=== PATIENT | female | born 1950 | race African-American/Black ===

== ENCOUNTER 2020-04-26 08:30 | Outpatient (CLI) | payer MEDICARE, SELFPAY ==
--- NOTE | ~2020-04-26 | MM_ITS ---
EXAMINATION: MM screening eleni BI w danica HISTORY: Screening mammogram TECHNIQUE: Craniocaudal and mediolateral oblique 3-D tomosynthesis images were obtained and synthetic 2-D images were generated. CAD analysis was submitted and interpreted. COMPARISON: 03/12/2019 left diagnostic mammogram and limited left breast ultrasound 02/19/2019 bilateral digital screening mammogram BREAST PARENCHYMAL COMPOSITION: There are scattered areas of fibroglandular density. FINDINGS: Stable bilateral small intramammary lymph nodes in the upper outer quadrants. There is no e vidence of suspicious mass, calcification, or architectural distortion to suggest malignancy in eithe r breast. There has been no suspicious interval change. IMPRESSION: 1. No mammographic evidence of malignancy. 2. Recommend routine screening mammography in one year. BI-RADS Category 2: Benign finding(s). Reviewed, dictated and finalized at location A.
== END 2020-04-26 08:31 | disposition home or self-care (01) ==
PROVIDERS: PCP Family Medicine; Visit Provider Obstetrics & Gynecology
DX: Z12.31 Encounter for screening mammogram for malignant neoplasm of breast (principal)
CPT/HCPCS: 77063; 77067

== ENCOUNTER 2020-08-04 08:00 | Outpatient (RCR) | payer MEDICARE, SELFPAY ==
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
--- NOTE | 2020-08-24 10:37 | PCPTNOTE ---
Admitting Provider: Attending Provider: Kenneth Watson MD Patient:Lorna Cavanaugh Date of :1950 Discharge Note Patient has not returned for any further treatments since 08/04/2020, therefore she will be discharged at this time. She has improved with her pain and tolerance with daily activities. She has been instructed in a HEP and performs independently. Patient?s initial visit was on 07/05/2020 08:45 and she had a total of 6 visits. The goals have been met at this time. Thank you for referring this patient to [facility]. Please review, sign, date and return this discharge summary BENTLEY. I have been updated about the patient's current status and I agree with discharge from the above service at this time. Referring Physician Date
== END 2020-08-24 13:11 | disposition home or self-care (01) ==
LOC: ANHPT 08:00
PROVIDERS: PCP Family Medicine; Visit Provider Orthopaedic Surgery
DX: M47.9 Spondylosis, unspecified (principal)
CPT/HCPCS: 97110; 97161

== ENCOUNTER 2021-01-21 09:04 | Outpatient (CLI) | payer MEDICARE, SELFPAY ==
[2021-01-21 10:12] LABS: Alanine Aminotransferase 19 U/L (4-35); Albumin Level 4.3 g/dL (3.5-5.1); Alkaline Phosphatase 59 U/L (38-126); Anion Gap 7 mmol/L (8-16); Aspartate Amino Transferase 29 U/L (14-36); Bilirubin,Total 0.6 mg/dL (0.2-1.3); Blood Urea Nitrogen 15 mg/dL (7-17); Calcium 9.7 mg/dL (8.4-10.2); Carbon Dioxide 29 mmol/L (22-30); Chloride 105 mmol/L (98-107); Cholesterol 214 mg/dL (0-200); Estimated Glomerular Filt Rate > 60; Glucose 116 mg/dL (65-105); HDL Direct 55 mg/dL; Potassium 3.6 mmol/L (3.4-5.0); Sodium 141 mmol/L (137-145); Triglycerides 125 mg/dL (<150)
[2021-01-21 10:22] LABS: LDL Cholesterol Direct 106 mg/dL
== END 2021-01-21 09:05 | disposition home or self-care (01) ==
PROVIDERS: PCP Family Medicine; Visit Provider Internal Medicine Cardiovascular Disease
DX: E78.5 Hyperlipidemia, unspecified (principal)
CPT/HCPCS: 36415; 80053; 80061

== ENCOUNTER 2021-02-09 06:36 | Outpatient (CLI) | payer MEDICARE, SELFPAY ==
--- NOTE | ~2021-02-09 | NM_ITS ---
EXAMINATION: NM tati stress w perfusion DATE: 02/09/2021 12:53 INDICATION: Chest pain TECHNIQUE: Rest images were obtained following intravenous administration of 9.7 mCi Tc99m tetrofosmi n (Myoview). The patient was infused intravenously with Lexiscan (Regadenoson). Then, 31.4 mCi Tc99m tetrofosmin (Myoview) was administered intravenously, and stress images were obtained. Data was recon structed into short axis and horizontal and vertical long axis SPECT images. Gated SPECT images were also obtained. COMPARISON: None. FINDINGS: There is no definite reversible or fixed perfusion abnormality to suggest ischemia or infar ction. There is normal left ventricular chamber size, wall motion and ejection fraction. Left ventr icular ejection fraction measures 66%. IMPRESSION: 1. Normal myocardial perfusion at rest and during stress. 2. Left ventricular ejection fraction measuring 66%. Reviewed, dictated and finalized at location B.
--- NOTE | 2021-02-09 07:00 | ECHO_ITS ---
Patient Info Name: Lorna Cavanaugh Age: 70 years : 1950 Gender: Female Ht: 64 in Wt: 170 lbs BSA: 1.89 m2 HR: 72 bpm BP: 176 / 95 mmHg Heart Rhythm: Sinus Rhythm Exam Date: 02/09/2021 7:11 AM Exam Location: [facility] Patient Status: Outpatient Admit Date: 02/09/2021 Staff Ordering Physician: Sohail East DO Crimping Machine Operator For Metal: Eliza Contreras RDCS Attending Provider: Sohail East DO Exam Type: CA echo doppler color flow Study Info Indications R06.00 - Dyspnea, unspecified Complete two-dimensional, color flow and Doppler transthoracic echocardiogram is performed. Summary 1. Complete two-dimensional, color flow and Doppler transthoracic echocardiogram is performed. 2. Left ventricular chamber dimension is normal. 3. Left ventricular systolic function is normal, estimated at 60-65%. 4. The left ventricular diastolic function is grade I diastolic dysfunction. 5. E/e' 11 is mildly elevated. 6. There is mild aortic valve sclerosis. 7. There is trace mitral valve regurgitation. 8. There is mild to moderate tricuspid valve regurgitation. 9. No pulmonary hypertension, estimated pulmonary arterial systolic pressure is 38 mmHg. 10. There is trace pulmonic regurgitation. Left Ventricle E/e' 11 is mildly elevated. Left ventricular chamber dimension is normal. Left ventricular systolic function is normal, estimated at 60-65%. The left ventricular diastolic function is grade I diastolic dysfunction. Right Ventricle Right ventricular chamber dimension is normal. Right ventricular systolic function is normal. Left Atria Left atrial chamber dimension is normal. Right Atria Right atrial chamber dimension is normal. Aortic Valve The aortic valve is trileaflet. There is mild aortic valve sclerosis. There is no aortic valve stenosis. There is no aortic valve regurgitation. Pulmonic Valve There is trace pulmonic regurgitation. Mitral Valve There is no mitral valve stenosis. There is trace mitral valve regurgitation. Tricuspid Valve There is mild to moderate tricuspid valve regurgitation. No pulmonary hypertension, estimated pulmonary arterial systolic pressure is 38 mmHg. Pericardium/Pleural There is no pericardial effusion. Inferior Vena Cava Normal inferior vena cava with >50% collapse upon inspiration consistent with normal right atrial pressure, 5 mmHg. Aorta The aortic root size at the sinus of Valsalva is normal. Left Ventricular Outflow Tract Name Value Normal LVOT 2D LVOT Diameter 1.7 cm LVOT Doppler LVOT Peak Gradient 3 mmHg LVOT Mean Gradient 2 mmHg LVOT VTI 24 cm LVOT VTI/AV VTI Ratio 0.7 LVOT Stroke Volume 51 ml LVOT CO 7.3 l/min LVOT CI 3.9 l/min/m2 Pulmonic Valve Name Value Normal
--- NOTE | 2021-02-09 07:00 | EST_ITS ---
Patient Info Name: Lorna Cavanaugh Age: 70 years : 1950 Gender: Female Ht: 64 in Wt: 170 lbs BSA: 1.89 m2 Exam Date: 02/09/2021 9:10 AM Exam Location: [facility] Stress Patient Status: Outpatient Admit Date: 02/09/2021 Staff Ordering Physician: Sohail East DO Attending Provider: Sohail East DO Exercise Technologist: Bartolome Islas RDCS, RT Exercise Physician: Sohail East DO Exam Type: CA stress tati w NM Study Info A regadenoson stress test was performed. Summary 1. 1. Inconclusive lexiscan stress test for ischemic ST changes by ECG criteria due to baseline LBBB. 2. 2. Baseline hypertension. 3. 3. Nuclear scan to follow and will be reported separately. Please correlate with it. 4. 4. Patient informed of the above results. Protocol: Lexiscan Stress ECG Details Stage: REST Duration (min): 2 min : 43 sec HR (bpm): 63 SBP (mmHg): --- DBP (mmHg): --- Stage: REST Duration (min): 7 min : 55 sec HR (bpm): 61 SBP (mmHg): 188 DBP (mmHg): 99 Stage: STAGE 1 Duration (min): 1 min : 0 sec HR (bpm): 87 SBP (mmHg): 178 DBP (mmHg): 74 Stage: RECOVERY Duration (min): 1 min : 0 sec HR (bpm): 93 SBP (mmHg): 178 DBP (mmHg): 74 Stage: RECOVERY Duration (min): 2 min : 0 sec HR (bpm): 85 SBP (mmHg): 178 DBP (mmHg): 74 Stage: RECOVERY Duration (min): 3 min : 0 sec HR (bpm): 83 SBP (mmHg): 178 DBP (mmHg): 74 Stage: RECOVERY Duration (min): 3 min : 16 sec HR (bpm): 82 SBP (mmHg): 169 DBP (mmHg): 80 Rest HR: 61 bpm Peak HR: 94 bpm Rest Sys BP: 188 mmHg Peak Sys BP: 178 mmHg Max Pred HR: 152 bpm % Max Pred HR: 62 % Target HR: 129 bpm Max RPP: 16,732 bpm*mmHg Termination Reason: Completed protocol Cardiac Symptoms: Shortness of breath Total Time: 1 min : 0 sec Rest Weinberg BP: 99 mmHg Peak Weinberg BP: 74 mmHg Total Dose: 0.4 mg Resting ECG Sinus rhythm, LBBB. Stress ECG No ST changes. Arrhythmias None. Report Signatures
== END 2021-02-09 06:37 | disposition home or self-care (01) ==
PROVIDERS: PCP Family Medicine; Visit Provider Internal Medicine Cardiovascular Disease
DX: R07.89 Other chest pain (principal); R06.00 Dyspnea, unspecified; I36.1 Nonrheumatic tricuspid (valve) insufficiency; I35.8 Other nonrheumatic aortic valve disorders
CPT/HCPCS: 78452; 93017; 93306; A9502; J2785

== ENCOUNTER → 2021-02-23 00:27 | Outpatient (CLI) | payer MEDICARE, SELFPAY ==
[2021-02-23 16:23] LABS: SARS-CoV-2 RNA PCR Negative
== END ==
PROVIDERS: PCP Family Medicine; Visit Provider Internal Medicine Critical Care Medicine
DX: Z20.822 Contact with and (suspected) exposure to COVID-19 (principal)
CPT/HCPCS: C9803; U0003; U0005

== ENCOUNTER 2021-02-25 06:58 | Outpatient (CLI) | payer MEDICARE, SELFPAY ==
--- NOTE | 2021-03-14 13:18 | WPDSLEEPSTUD ---
Sleep Study Date of Study: 02/25/21 Ordering Provider: Sohail East DO Interpreting Physician: Ann Frye MD Sleep Study Type: Polysomnogram Height: 1.63 m Weight: 77.111 kg Body Mass Index: 29.2 Neck Circumference (inches): 16 [place]: 7 Reason for Sleep Study Snoring, daytime sleepiness Sleep History Lorna Cavanaugh is a 70 year old female with a history of snoring and excessive daytime sleepiness, referred by Dr East. His office note refers to these complaints as well as her hypertension, left bundle branch block and dyslipidemia. She has had some atypical chest pain and dyspnea on exertion. Her EKG shows 1st degree AV block, left axis deviation and a left bundle branch block. For complaint of hypersomnia. She also has this left bundle branch block which he was concerned that may be related to possible sleep apnea. She did not complete a sleep questionnaire, so there is limited history about her sleep habits. [facility] Past Medical History Medical History Arthritis Arthritis, lumbar spine Bilateral hip joint arthritis BMI 31.0-31.9,adult Bronchitis Cataracts, bilateral Degenerative arthritis of knee, bilateral Essential (primary) hypertension Fracture of finger of right hand (~10/2019) 5th distal finger GI bleed Hyperlipidemia Hypertension LBBB (left bundle branch block) Low back pain Obesity Rectal polyp Urinary frequency Vision disturbance (~11/28/19) Surgical History Surgical History H/O tubal ligation Hx of cataract surgery bilateral Hx of section Trigger finger, right middle finger Right third trigger finger release March 14, 2021 Family History Family History Mother Hypertension Social History Social History Smoking status: Never smoker Second hand tobacco smoke exposure: No Alcohol intake: never Living arrangements: alone Gender identity (if verbalized by the patient): Female Spiritual care concerns: No Medications Home Medications Medication Instructions Recorded Confirmed Type multivitamin 1 cap PO DAILY 06/23/20 03/14/21 History fluticasone propionate 50 1 spray INTRANASAL PRN PRN 01/06/21 03/10/21 History mcg/actuation nasal spray,suspension solifenacin 10 mg tablet 10 mg PO DAILY 03/09/21 03/14/21 History atorvastatin 10 mg PO HS 03/10/21 03/14/21 History hydrochlorothiazide 12.5 mg PO BID 03/10/21 03/14/21 History lisinopril 40 mg PO BID 03/10/21 03/14/21 History hydrocodone-acetaminophen 1 tablet PO Q6H PRN #10 tablet 03/14/21 Rx Sleep Procedure This test was performed using the [employer] multiple channel system including EOG, EEG, submental EMG, EKG, nasal and oral airflow using thermistors and nasal pressure sensors, chest and abdominal belts for body position data, and pulse oximetry. Video monitoring was also performed. The study was scored using [facility] guidelines. Sleep Architecture The recording time was 526.6 minutes. The sleep time is 258.7 minutes. Sleep efficiency is low at 49.1%. Sleep latency is 33.9 minutes. REM latency is 382.5 minutes. There were 51 awakenings. He spent 47.5% of the study awake after sleep onset. Sleep architecture showed 7.6% stage 1 sleep, 35.4% stage 2 sleep, absence of stage 3 sleep and 9.5% stage REM. There was no supine sleep. Sleep was fragmented with frequent shifts between wake stage I and stage II until the last 20% of the night. There was one consolidated REM episode near the end of the night. This was planned as a split night, however she did not meet criteria early enough in the night, the study was completed as a basic study per protocol. Respiratory Analysis The apnea-hypopnea index is 36.6. The obstructive index is 30.2 and the central index is 6.3. There was no supine RE
[2021-03-14 13:57] VITALS: BMI 29.2
== END 2021-02-25 06:59 | disposition home or self-care (01) ==
LOC: ANHCSM 06:58
PROVIDERS: PCP Family Medicine; Visit Provider Internal Medicine Cardiovascular Disease
DX: G47.33 Obstructive sleep apnea (adult) (pediatric) (principal); G47.10 Hypersomnia, unspecified; I10 Essential (primary) hypertension; E66.9 Obesity, unspecified; Z68.29 Body mass index [BMI] 29.0-29.9, adult; Z79.899 Other long term (current) drug therapy
CPT/HCPCS: 95810

== ENCOUNTER → 2021-03-11 01:51 | Outpatient (CLI) | payer MEDICARE, SELFPAY ==
[2021-03-11 19:39] LABS: SARS-CoV-2 RNA PCR Negative
== END ==
PROVIDERS: PCP Family Medicine; Visit Provider Orthopaedic Surgery
DX: Z01.812 Encounter for preprocedural laboratory examination (principal); Z20.822 Contact with and (suspected) exposure to COVID-19
CPT/HCPCS: C9803; U0003; U0005

== ENCOUNTER 2021-03-14 01:35 | Day surgery (SDC) | payer MEDICARE, SELFPAY ==
[2021-03-10 09:18] VITALS: BMI 32.1
--- NOTE | 2021-03-14 08:44 | WPDANESEPPF ---
Anes - Initial Pre Proc Eval Procedure: Operation Date: 03/14/21 12:00 Proposed Procedures p Right Third Trigger Finger Release - Kenneth Watson MD Date/Time: 03/14/21 08:44 Surgeon: Kenneth Watson MD Pre Op Diagnosis: Right 3rd trigger finger Patient Data Age: 70 Gender: F Height: 1.57 m Weight: 79.85 kg Allergies Allergy/AdvReac Type Severity Reaction Status Date / Time No Known Allergies Allergy Mild Verified 03/10/21 08:51 Home Medications Medication Instructions Recorded Confirmed Type multivitamin 1 cap PO DAILY 06/23/20 03/10/21 History fluticasone propionate 50 1 spray INTRANASAL PRN PRN 01/06/21 03/10/21 History mcg/actuation nasal spray,suspension solifenacin 10 mg tablet 10 mg PO DAILY 03/09/21 03/10/21 History atorvastatin 10 mg PO HS 03/10/21 03/10/21 History hydrochlorothiazide 12.5 mg PO BID 03/10/21 03/10/21 History lisinopril 40 mg PO BID 03/10/21 03/10/21 History ECG: Sinus rhythm, LAD, LBBB Other Studies: Echo/MUGA:: 02/09/21 Echo: EF 60-65%, grade I diastolic dysfunction (E/e' 11), trace MR/PI, mild-mod TR. Electrophysiology:: 01/21/21 EKG: Sinus rhythm, LAD, LBBB. 11/29/19 EKG: Sinus rhythm with first degree AV block, LAD, LBBB. Stress Tests:: 02/09/21 Lexiscan myoview: Negative. 12/01/19 CTA of head and neck: No ICA stenosis. Moderate nonspecific cerebral white matter disease, which likely represents chronic small vessel ischemic disease. Patient hx anesthesia problems: none Family hx anesthesia problems: none [facility] Past Medical History Medical History (Updated 03/14/21 @ 08:45 by Lance Farah MD) Arthritis Arthritis, lumbar spine Bilateral hip joint arthritis BMI 31.0-31.9,adult Bronchitis Cataracts, bilateral Degenerative arthritis of knee, bilateral Essential (primary) hypertension Fracture of finger of right hand (~10/2019) 5th distal finger GI bleed Hyperlipidemia Hypertension LBBB (left bundle branch block) Low back pain Obesity Rectal polyp Trigger finger, right middle finger Urinary frequency Vision disturbance (~11/28/19) Surgical History Surgical History H/O tubal ligation Hx of cataract surgery bilateral Hx of section Family History Family History Mother Hypertension Social History Social History Smoking status: Never smoker Second hand tobacco smoke exposure: No Alcohol intake: never Living arrangements: alone Gender identity (if verbalized by the patient): Female Spiritual care concerns: No Anes - Eval Final PreProcedure Day of Procedure 03/14/21 08:44 Patient weight: obese Heart: regular rate and rhythm Lungs: clear to auscultation and normal air movement Airway: Mallampati scale class II Neurological: alert and oriented Last oral intake: >/= 8 hours ASA classification: III Emergent: no Anesthetic plan: proceed Anesthesia type and monitoring: general GIVS Informed Consent: The patient's anesthetic plan and its attendant risks and benefits were discussed with the patient/family/POA. Questions were solicited and answers provided to the satisfaction of the patient/family/POA.
[2021-03-14] MEDS: LACTATED RINGERS 1,000 ML 30 ML IV CONT (10:50)
[2021-03-14 10:55] VITALS: BP 145/72; PULSE 61; TEMP 36.1; O2SAT 100
[2021-03-14] MEDS: ACETAMINOPHEN 500 MG TABLET 1000 MG PO (11:09)
[2021-03-14] MEDS: KETOROLAC 15 MG/ML VIAL (*BKC) IV PUSH (11:09)
--- NOTE | 2021-03-14 11:31 | WPDHPUPDATE1 ---
History and Physical Update Update Date/Time: 03/14/21 11:31 History and Physical has been reviewed, including an updated exam of the patient. There are NO changes in the patient's condition. Risks, benefits, and alternatives have been discussed and questions answered. Patient agrees to proceed with procedure.
[2021-03-14] MEDS: ceFAZolin 2 GM/D5W 50 ML 2 GM/50 ML BAG IVPB (11:56)
[2021-03-14 12:28] VITALS: BP 123/65; PULSE 61; RESP 14; O2SAT 100
--- NOTE | 2021-03-14 12:37 | PM.PROC ---
Procedure Note - Detailed Date of procedure: 03/14/21 Pre-op diagnosis: Right 3rd trigger finger Post-op diagnosis: same Procedure performed: Right third trigger finger release Description of procedure: The patient was identified and proper site identified. She was taken to the operating room and transferred to the OR table placing supine taking care to pad the torso and extremities. IV sedation was administered. A nonsterile tourniquet was placed high on the right arm which was prepped and draped in the usual sterile fashion. Several cc of .25 % plain Marcaine was injected into the subcutaneous tissue over the A1 yovanny of the right third digit. The extremity was exsanguinated and the tourniquet was inflated to 200 mmHg remaining up for about five minutes. A longitudinal incision was made over the A1 yovanny. Subcutaneous tissue was bluntly dissected down to the yovanny while protecting the neurovascular bundles. The A1 yovanny was identified and then transected longitudinally in line with the incision and tendons. The tendons were delivered into the wound verifying the adequacy of the release. Hemostasis was carried out. The wound was irrigated with sterile saline. Skin edges were reapproximated with 4-0 nylon suture. Sterile dressing was applied. Tourniquet was released. She tolerated the procedure well and was transferred back to a cart, then taken to the recovery area in stable condition. There were no known intraoperative complications. Estimated blood loss was negligible. Perioperative antibiotics were administered. Anesthesia: MAC and local Surgeon: Kenneth Watson MD Estimated blood loss (mL): 1 Tourniquet time (min): 5 Drains: No Packing: No Pathology: none sent Complications: No immediate complications Condition: stable Disposition: PACU
[2021-03-14 12:55] VITALS: BP 115/100; PULSE 52; RESP 14
[2021-03-14 13:15] VITALS: BP 160/68; PULSE 51; RESP 14
[2021-03-14 13:28] VITALS: BP 158/68; PULSE 54; RESP 14
== END 2021-03-14 13:33 | disposition home or self-care (01) ==
PROVIDERS: PCP Family Medicine; Visit Provider Orthopaedic Surgery
PROC: (CPT 26055; principal; 2021-03-14 12:00)
DX: M65.331 Trigger finger, right middle finger (principal); I10 Essential (primary) hypertension; E78.5 Hyperlipidemia, unspecified; E66.9 Obesity, unspecified; Z68.32 Body mass index [BMI] 32.0-32.9, adult
CPT/HCPCS: 26055; A9270; C9803; J0690; J1885; J2250; J2704; J3010; J7120; U0003; U0005

== ENCOUNTER → 2021-04-01 00:40 | Outpatient (CLI) | payer MEDICARE, SELFPAY ==
[2021-04-01 18:42] LABS: SARS-CoV-2 RNA PCR Negative
== END ==
PROVIDERS: PCP Family Medicine; Visit Provider Internal Medicine Critical Care Medicine
DX: Z01.812 Encounter for preprocedural laboratory examination (principal); Z20.822 Contact with and (suspected) exposure to COVID-19
CPT/HCPCS: C9803; U0003; U0005

== ENCOUNTER 2021-04-04 08:09 | Outpatient (CLI) | payer MEDICARE, SELFPAY ==
--- NOTE | 2021-04-15 19:19 | WPDSLEEPSTUD ---
Sleep Study Date of Study: 04/04/21 Ordering Provider: Sohail East DO Primary Care doctor is Alisia Washington MD Interpreting Physician: Ann Frye MD Sleep Study Type: CPAP Titration Height: 1.57 m Weight: 78.018 kg Body Mass Index: 31.4 Neck Circumference (inches): 17 [place]: 12 Reason for Sleep Study Basic nocturnal polysomnogram February 25, 2021 with severe obstructive sleep apnea with an AHI 36.6, obstructive AHI 30.2, central AHI 6.3, 78% desaturation and 6.4 minutes spent below 88%; she presents for CPAP titration Sleep History Lorna Cavanaugh is a 70 year old female with a history of snoring and excessive daytime sleepiness, referred by Dr East. His office note refers to these complaints as well as her hypertension, left bundle branch block and dyslipidemia. She has had some atypical chest pain and dyspnea on exertion. Her EKG shows 1st degree AV block, left axis deviation and a left bundle branch block. For complaint of hypersomnia. She also has this left bundle branch block which he was concerned that may be related to possible sleep apnea. She did not complete a sleep questionnaire, so there is limited history about her sleep habits. [facility] Past Medical History Medical History (Updated 04/15/21 @ 19:41 by Ann Frye MD) Arthritis Arthritis, lumbar spine Bilateral hip joint arthritis BMI 31.0-31.9,adult Bronchitis Cataracts, bilateral Degenerative arthritis of knee, bilateral Essential (primary) hypertension Fracture of finger of right hand (~10/2019) 5th distal finger GI bleed Hyperlipidemia Hypertension LBBB (left bundle branch block) Low back pain Obesity Obstructive sleep apnea Rectal polyp Urinary frequency Vision disturbance (~11/28/19) Surgical History Surgical History H/O tubal ligation Hx of cataract surgery bilateral Hx of section Trigger finger, right middle finger Right third trigger finger release March 14, 2021 Family History Family History Mother Hypertension Social History Social History Smoking status: Never smoker Second hand tobacco smoke exposure: No Alcohol intake: never Gender identity (if verbalized by the patient): Female Spiritual care concerns: No Medications Home Medications Medication Instructions Recorded Confirmed Type multivitamin 1 cap PO DAILY 06/23/20 03/29/21 History fluticasone propionate 50 1 spray INTRANASAL PRN PRN 01/06/21 03/29/21 History mcg/actuation nasal spray,suspension solifenacin 10 mg tablet 10 mg PO DAILY 03/09/21 03/29/21 History atorvastatin 10 mg PO HS 03/10/21 03/29/21 History hydrochlorothiazide 12.5 mg PO BID 03/10/21 03/29/21 History lisinopril 40 mg PO BID 03/10/21 03/29/21 History hydrocodone-acetaminophen 1 tablet PO Q6H PRN #10 tablet 03/14/21 03/29/21 Rx Sleep Procedure This test was performed using the [employer] multiple channel system including EOG, EEG, submental EMG, EKG, nasal and oral airflow using thermistors and nasal pressure sensors, chest and abdominal belts for body position data, and pulse oximetry. Video monitoring was also performed. The study was scored using [facility] guidelines. The patient was started on CPAP using a medium AirFit F 20 full face mask and heated humidifier with an initial pressure of 7 cm, gradually increased to 8 cm, 10 cm, 12 cm, 14 cm and 16 cm. At 16 cm, the patient spent 55 minutes in bed, 25 minutes in REM, 24 minutes in non-REM. There was 1 central apnea and 1 hypopnea. The apnea-hypopnea index was 2.4. Lowest saturation is 94%. Sleep efficiency is 89%. Sleep Architecture The recording time is 336.9 minutes. The sleep time is 312.1 minutes. The sleep latency is 2.4 minutes. The REM latency is prolonged at 178 minutes. The patient had 17 awakenings and spent 6.7% of hte study awake after s
[2021-04-15 19:39] VITALS: BMI 31.4
== END 2021-04-04 08:10 | disposition home or self-care (01) ==
LOC: ANHCSM 08:09
PROVIDERS: PCP Family Medicine; Visit Provider Internal Medicine Cardiovascular Disease
DX: G47.33 Obstructive sleep apnea (adult) (pediatric) (principal); Z68.31 Body mass index [BMI] 31.0-31.9, adult
CPT/HCPCS: 95811

== ENCOUNTER 2021-06-02 08:14 | Outpatient (CLI) | payer MEDICARE, SELFPAY ==
--- NOTE | ~2021-06-02 | MM_ITS ---
EXAMINATION: MM screening eleni BI w danica HISTORY: Screening mammogram, family history of breast cancer in her sister. TECHNIQUE: Craniocaudal and mediolateral oblique 3-D tomosynthesis images were obtained and synthetic 2-D images were generated. CAD analysis was submitted and interpreted. COMPARISON: 04/26/2020, 03/12/2019, 02/19/2019, 01/02/2017 BREAST PARENCHYMAL COMPOSITION: There are scattered areas of fibroglandular density. FINDINGS: There is no evidence of suspicious mass, calcification, or architectural distortion to sugg est malignancy in either breast. There has been no suspicious interval change. IMPRESSION: 1. No mammographic evidence of malignancy. 2. Recommend routine screening mammography in one year. BI-RADS Category 1: Negative Reviewed, dictated and finalized at location A.
== END 2021-06-02 08:15 | disposition home or self-care (01) ==
PROVIDERS: PCP Family Medicine; Visit Provider Family Medicine
DX: Z12.31 Encounter for screening mammogram for malignant neoplasm of breast (principal)
CPT/HCPCS: 77063; 77067

== ENCOUNTER 2022-03-29 14:43 | Outpatient (CLI) | payer MEDICARE, SELFPAY ==
--- NOTE | 2022-03-29 | ECG_ITS ---
Measurements Intervals [place] Rate: 62 P: 51 [place]: 188 QRS: -45 QRSD: 145 T: 115 QT: 444 QTc: 451 Interpretive Statements SINUS RHYTHM LEFT AXIS DEVIATION LEFT BUNDLE BRANCH BLOCK INFERIOR INFARCT OR DUE TO LBBB ANTEROSEPTAL INFARCT OR DUE TO LBBB BASELINE WANDER- I, II, AVR, AVL, AVF ABNORMAL ECG Electronically Signed On 03-29-2022 15:18:25 CDT by Sohail East D.O.
== END 2022-03-29 14:44 | disposition home or self-care (01) ==
LOC: ANHCARD 14:45
PROVIDERS: PCP Physician Assistant; Visit Provider Physician Assistant
DX: R07.89 Other chest pain (principal); I44.7 Left bundle-branch block, unspecified
CPT/HCPCS: 93005

== ENCOUNTER → 2022-06-23 14:04 | Outpatient (CLI) | payer MEDICARE, SELFPAY ==
--- NOTE | ~2022-06-23 | MR_ITS ---
EXAMINATION: MR knee LT wo con DATE: 06/23/2022 14:43 INDICATION: Left knee pain TECHNIQUE: Magnetic resonance imaging (MRI) of the left knee was performed without intravenous contra st. Sequences included coronal PD-weighted FSE, coronal PD-weighted FS FSE, sagittal T2-weighted FSE , sagittal PD-weighted FS FSE and axial PD weighted fat saturated FSE. COMPARISON: None. FINDINGS: Medial compartment: Tear of indeterminate but potentially parrot beak configuration at the posterior horn of the medial m eniscus. Partial-thickness chondral ulceration and deep fissuring along the lateral aspect of the ant erior to central weightbearing medial femoral condyle with underlying tiny central subchondral osteop hyte. Additional deep chondral ulceration with mild underlying edema-like signal change along the med ial aspect of the posterior weightbearing medial femoral condyle. Partial-thickness cartilage loss al beatrice the medial tibial plateau but with smooth chondral surface and without degenerative subchondral c hanges. Lateral compartment: There is lateral extrusion of the lateral meniscal body. Longitudinal horizontal tear extending to th e superior articular surface along the anterior horn and body of the lateral meniscus. Extensive cart ilage loss along the weightbearing lateral femoral condyle involving greater than 50% the cartilage t hickness with surface irregularity at the remaining cartilage. Additional partial thickness cartilage loss along the lateral tibial plateau, in places appearing full/near full-thickness with minimal und erlying edema-like signal change centrally. Patellofemoral compartment: Partial-thickness chondral ulceration with deep fissuring at the medial patellar facet. Additional de ep fissuring at the patellar apical ridge, both regions with minimal underlying subarticular edema-li ke marrow signal change. Additional deep chondral ulceration at the trochlea centered along the troch lear groove where there are tiny central subchondral osteophytes. Ligaments and tendons: Anterior and posterior cruciate ligaments are normal. The medial collateral ligament and fibular pratima ateral ligament complex are normal. The extensor mechanism is normal. The visualized medial and later al hamstring tendons as well as the iliotibial band are normal. Fluid: Small to moderate-sized left knee joint effusion at the suprapatellar pouch. No loose osteochondral b odies identified. Osseous/other: Bone alignment is normal. No fracture or pathologic marrow replacing process. IMPRESSION: 1. Medial and lateral meniscal tears. 2. 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 3. Small to moderate-sized left knee joint effusion. Reviewed, dictated and finalized at location A. IMPRESSION: 1. Medial and lateral meniscal tears. 2. Mild tricompartmental osteoarthritis with moderate and high-grade chondromal acia in all 3 compartments. 3. Small to moderate-sized left knee joint effusion.
== END ==
PROVIDERS: PCP Physician Assistant; Visit Provider Orthopaedic Surgery
DX: M25.562 Pain in left knee (principal); S83.282A Other tear of lateral meniscus, current injury, left knee, initial encounter; S83.242A Other tear of medial meniscus, current injury, left knee, initial encounter; M17.12 Unilateral primary osteoarthritis, left knee; M94.262 Chondromalacia, left knee; M25.462 Effusion, left knee
CPT/HCPCS: 73721

== ENCOUNTER 2022-09-12 09:30 | Outpatient (CLI) | payer MEDICARE, SELFPAY ==
[2022-09-12 10:16] LABS: Anion Gap 11 mmol/L (8-16); Blood Urea Nitrogen 15 mg/dL (7-17); Calcium 9.2 mg/dL (8.4-10.2); Carbon Dioxide 29 mmol/L (22-30); Chloride 103 mmol/L (98-107); Estimated Glomerular Filt Rate > 60; Glucose 101 mg/dL (65-110); Potassium 3.6 mmol/L (3.4-5.0); Sodium 143 mmol/L (137-145)
== END 2022-09-12 09:31 | disposition home or self-care (01) ==
LOC: ANHSURGERY 09:41
PROVIDERS: Anesthesiology; PCP Physician Assistant; Visit Provider Orthopaedic Surgery
DX: Z01.818 Encounter for other preprocedural examination (principal); E11.9 Type 2 diabetes mellitus without complications
CPT/HCPCS: 36415; 80048

== ENCOUNTER 2022-09-18 00:19 | Day surgery (SDC) | payer MEDICARE, SELFPAY ==
--- NOTE | 2022-09-07 15:41 | PC.NURSE ---
Report to the Outpatient Waiting Room, entrance under the green pavilion located off [facility], at time _0900 on date __09/18/22 . OR Time: _1100 . Time changes happen often and if your time is changed the preop area will call you the afternoon before. - You and your visitor will be asked to self-screen and do not enter if you have any COVID symptoms. - We encourage only one visitor and NO visitors under age 16 are allowed at this time. Your visitor will receive communication by the phone number that is given day of service. - The patient visitor is requested to social distance or may leave the building when not with patient due to restrictions. - A mask is required within the hospital. Patients may have clear liquids (water, carbonated beverages, clear teas, apple juice) until 3 hours prior to surgery with a maximum of 20 ounces. - No food from midnight until time of surgery - Infants may have breast milk until 4 hours before surgery, formula 6 hours prior to surgery. - Children will be allowed to drink immediately following surgery. If applicable, please bring a bottle or sippy cup to assist with drinking. Juice, water, soda, and popsicles are readily available. For infants on formula, please bring formula the day of surgery. Pacifiers are allowed. Take the following medications with a SIP of water the morning of surgery: __NONE Medications to discontinue per physician __ALL VITAMINS 3 DAYS PRE OP Date to take last dose__09/14/22 Please no make-up, nail equatorial guinean, hairspray, perfume, deodorant, or body powder the day of surgery. No jewelry (including any body piercings) or valuables the day of surgery, leave them at home. Please take a shower or bath the night before, or the morning of, surgery with an antibacterial soap. Wear comfortable, loose fitting clothing. Children are encouraged to wear pajamas. - Jewelry must be removed prior to entering the operating room. Rings and piercings that are not removed may be cut off. - The hospital will not accept responsibility for valuables. - Please leave all valuables, including medications, at home the day of surgery. If you are going home after surgery, a licensed certified driver examiner must drive you home. - NO public transportation without another adult. - We recommend that an adult stay with you for 24 hours following discharge. - We also recommend that you do not drive, make important decision, drink alcoholic beverages, or take any drugs that were not prescribed by your health care provider for at least 24 hours after your discharge time. For Pediatric surgeries, we recommend two adults accompany the child home. Follow any additional instructions given to you from your surgeon. If you or anyone in your household have experienced Covid symptoms in the past week, please notify your surgeon or the nurse liaison at the phone number below for possible testing. Telephone instructions given to _PATIENT and asked if any additional questions and then verbalized understanding. Patient advised to call surgeon office or pre surgery nurse liaison [phone] if any additional questions.
[2022-09-07 15:49] VITALS: BMI 31.1
[2022-09-18] VITALS (8 sets, daily range): BP systolic 143–183; BP diastolic 68–86; PULSE 55–70; RESP 12–16; TEMP 36.1–36.2; O2SAT 96–100
--- NOTE | 2022-09-18 07:02 | WPDANESEPPF ---
Anes - Initial Pre Proc Eval Procedure: Operation Date: 09/18/22 07:30 Proposed Procedures p Left Knee Arthroscopy with Meniscectomy - Kenneth Watson MD Date/Time: 09/18/22 07:02 Surgeon: Kenneth Watson MD Pre Op Diagnosis: left knee meniscal tear Patient Data Age: 72 Gender: F Height: 1.57 m Weight: 77.15 kg Allergies Allergy/AdvReac Type Severity Reaction Status Date / Time No Known Allergies Allergy Mild Verified 09/13/22 10:04 Home Medications Medication Instructions Recorded Confirmed Type multivitamin 1 cap PO DAILY 06/23/20 09/13/22 History fluticasone propionate 50 1 spray intranasal PRN PRN Allergy 01/06/21 09/13/22 History mcg/actuation nasal Symptoms spray,suspension solifenacin 10 mg tablet 10 mg PO DAILY 03/09/21 09/13/22 History atorvastatin 10 mg tablet 10 mg PO HS 03/10/21 09/13/22 History metformin 500 mg tablet 500 mg PO BID 04/13/22 09/13/22 History losartan 100 1 tablet PO DAILY 09/07/22 09/13/22 History mg-hydrochlorothiazide 25 mg tablet ECG: Date of Service: 03/29/22 Procedure(s): CA 12 lead EKG Accession Number(s): [id number] cc: ~ ? Measurements Intervals? [place]? Rate: ? 62 ? P:? 51 AK: ? 188? QRS:? -45 QRSD: ? 145? T:? 115 QT: ? 444? QTc:? 451? Interpretive Statements SINUS RHYTHM LEFT AXIS DEVIATION LEFT BUNDLE BRANCH BLOCK INFERIOR INFARCT OR DUE TO LBBB ANTEROSEPTAL INFARCT OR DUE TO LBBB BASELINE WANDER- I, II, AVR, AVL, AVF ABNORMAL ECG Electronically Signed On 03-29-2022 15:18:25 CDT by Sohail East D.O. Patient hx anesthesia problems: none Family hx anesthesia problems: none Results Review: All pre-operative results and documents have been reviewed as part of the pre-operative evaluation. [facility] Past Medical History Medical History Arthritis Arthritis, lumbar spine Bilateral hip joint arthritis BMI 31.0-31.9,adult Bronchitis Cataracts, bilateral Degenerative arthritis of knee, bilateral Diabetes Last A1c 6.4 on June 27, 2022 Essential (primary) hypertension Fracture of finger of right hand (~10/2019) 5th distal finger GI bleed Hyperlipidemia Hypertension LBBB (left bundle branch block) Low back pain Obesity Obstructive sleep apnea Rectal polyp Tear of meniscus of left knee medial and lateral menisci Urinary frequency Vision disturbance (~11/28/19) Surgical History Surgical History H/O tubal ligation Hx of cataract surgery bilateral Hx of section Trigger finger, right middle finger Right third trigger finger release March 14, 2021 Family History Family History Mother Hypertension Social History Social History Smoking status: Never smoker Second hand tobacco smoke exposure: No Alcohol intake: never Living arrangements: alone Gender identity (if verbalized by the patient): Female Spiritual care concerns: No Anes - Eval Final PreProcedure Day of Procedure 09/18/22 07:02 Patient weight: obese Heart: regular rate and rhythm Lungs: clear to auscultation and normal air movement Airway: Mallampati scale class II Neurological: alert and oriented Last oral intake: >/= 8 hours ASA classification: III Emergent: no Anesthetic plan: proceed Anesthesia type and monitoring: general LMA Results Review: All pre-operative results and documents have been reviewed as part of the pre-operative evaluation. Informed Consent: The patient's anesthetic plan and its attendant risks and benefits w
[2022-09-18] MEDS: ACETAMINOPHEN 500 MG TABLET 1000 MG PO (07:09)
[2022-09-18] MEDS: KETOROLAC 15 MG/ML VIAL (*BKC) IV PUSH (07:09)
[2022-09-18] MEDS: LACTATED RINGERS 1,000 ML 30 ML IV CONT (07:21)
--- NOTE | 2022-09-18 07:21 | WPDHPUPDATE1 ---
History and Physical Update Update Date/Time: 09/18/22 07:21 History and Physical has been reviewed, including an updated exam of the patient. There are NO changes in the patient's condition. Risks, benefits, and alternatives have been discussed and questions answered. Patient agrees to proceed with procedure.
[2022-09-18 07:28] LABS: Glucose Point of Care 90 mg/dl (65-105)
[2022-09-18] MEDS: ceFAZolin 2 GM/D5W 50 ML 2 GM/50 ML BAG IVPB (07:28)
[2022-09-18] MEDS: LIDOCAINE HCL 1% PF 30 ML VIAL 20 ML INFILTRATE (07:52)
[2022-09-18 08:28] LABS: Glucose Point of Care 107 mg/dl (65-105)
--- NOTE | 2022-09-18 08:29 | W.PM.PROC2 ---
Procedure Note - Detailed Date of Procedure 09/18/22 Pre-op Diagnosis left knee medial and lateral meniscal tears Post-op Diagnosis Same Procedure Performed left knee arthroscopy with partial medial and lateral meniscectomy Surgeon Kenneth Watson MD Anesthesia General Description of Procedure The patient was identified and proper site identified; she was taken to the operating room, transferred to the OR table placing her supine taking care to pad the torso and extremities. After general anesthetic induction and intubation, a nonsterile tourniquet was placed high on the left thigh but was not inflated. The left lower extremity was positioned, prepped and draped in usual sterile fashion. 10 cc of 1% lidocaine was injected into the subcutaneous tissue in the area of the portals at start of the procedure, and an additional 10 at the end. The portals were established and the arthroscopy was carried out. Articular cartilage in all three compartments showed fraying and fibrillation. Chronic low-grade synovitis noted throughout the knee. Anterior posterior cruciate ligaments noted to be in continuity. Complex tearing of both medial and lateral menisci. Medially it was posterior horn to midbody. Laterally was midbody to anterior horn. The menisci were trimmed back to a more stable rim with basket forceps and a shaver. The knee was flushed with a copious amount of arthroscopic fluid and equipment was removed. Portals were closed with three O nylon suture and a sterile dressing was applied. She tolerated the procedure well, was awakened, extubated and taken to recovery area in stable condition. There were no known intraoperative complications. Estimated blood loss was negligible; she received perioperative antibiotics. Estimated Blood Loss 5 Tourniquet Time 0 Drains No Packing No Pathology None sent Complications No immediate complications Condition Stable Disposition PACU
--- NOTE | 2022-09-18 10:21 | SUR.PHASEII ---
RN told patient to take her BP medicine when she gets home.
== END 2022-09-18 10:28 | disposition home or self-care (01) ==
PROVIDERS: PCP Physician Assistant; Visit Provider Orthopaedic Surgery
PROC: (CPT 29870; principal; 2022-09-18 07:30)
DX: M23.322 Other meniscus derangements, posterior horn of medial meniscus, left knee (principal); M23.342 Other meniscus derangements, anterior horn of lateral meniscus, left knee; M65.862 Other synovitis and tenosynovitis, left lower leg; I10 Essential (primary) hypertension; E11.9 Type 2 diabetes mellitus without complications; E78.5 Hyperlipidemia, unspecified; G47.33 Obstructive sleep apnea (adult) (pediatric); I44.7 Left bundle-branch block, unspecified; E66.9 Obesity, unspecified; Z68.31 Body mass index [BMI] 31.0-31.9, adult; Z79.84 Long term (current) use of oral hypoglycemic drugs
CPT/HCPCS: 29880; 36415; 80048; 82948; A9270; J0690; J1200; J1885; J2405; J2704; J3010; J7120

== ENCOUNTER 2022-11-07 08:29 | Outpatient (CLI) | payer MEDICARE, SELFPAY ==
--- NOTE | ~2022-11-07 | MM_ITS ---
EXAMINATION: MM screening eleni BI w danica HISTORY: Screening TECHNIQUE: Craniocaudal and mediolateral oblique 3-D tomosynthesis images were obtained and synthetic 2-D images were generated. CAD analysis was submitted and interpreted. COMPARISON: Comparison to multiple prior studies sequentially, with oldest reviewed study dated 02/2016. BREAST PARENCHYMAL COMPOSITION: Breast composed of scattered areas of fibroglandular density FINDINGS: There is no evidence of suspicious mass, calcification, or architectural distortion to sugg est malignancy in either breast. There has been no suspicious interval change. IMPRESSION: 1. No mammographic evidence of malignancy. 2. Recommend routine screening mammography in one year. BI-RADS Category 1: Negative Reviewed, dictated and finalized at location B. MACHINE SERVICE REPAIRER
== END 2022-11-07 08:30 | disposition home or self-care (01) ==
PROVIDERS: PCP Physician Assistant; Visit Provider Physician Assistant
DX: Z12.31 Encounter for screening mammogram for malignant neoplasm of breast (principal)
CPT/HCPCS: 77063; 77067

== ENCOUNTER 2023-04-21 07:26 | Emergency (ER) | payer MEDICARE, SELFPAY ==
--- NOTE | ~2023-04-21 | XR_ITS ---
EXAMINATION: XR chest 2V DATE: 04/21/2023 08:04 INDICATION: Right shoulder pain. TECHNIQUE: Frontal and lateral views of the chest were obtained. COMPARISON: None. FINDINGS: The chest demonstrates clear lungs without pneumonia, pleural effusion, or pneumothorax. Th e heart size is normal. IMPRESSION: 1. No acute cardiopulmonary disease. Reviewed, dictated and finalized at location A.
--- NOTE | ~2023-04-21 | XR_ITS ---
EXAMINATION: XR shoulder RT min 2V DATE: 04/21/2023 08:04 INDICATION: Right shoulder pain. TECHNIQUE: 4 views of right shoulder were obtained. COMPARISON: None. FINDINGS: Bone alignment is normal. No fracture. There is mild osteoarthritis of glenohumeral joint a nd moderate osteoarthritis of acromioclavicular joint. IMPRESSION: 1. Polyarticular osteoarthritis. Reviewed, dictated and finalized at location A.
[2023-04-21 07:27] VITALS: BP 167/81; PULSE 73; RESP 18; TEMP 36.4; O2SAT 100
--- NOTE | 2023-04-21 09:06 | ED.EXTPRO ---
HPI - Extremity Problem General Chief complaint: Extremity Problem,Nontraumatic Stated complaint: right shoulder pain Time Seen by Provider: 04/21/23 07:42 Source: patient Mode of arrival: ambulatory Limitations: no limitations History of Present Illness HPI Narrative: 72 years old -[place] female drove herself to the emergency room because of nontraumatic pain at the right shoulder for the last 7 days. History of extensive generalized arthritis, cortisone injection of the knees, pain worse with certain movement, healing clicks with movement. She denies any fever, chills, nausea, vomiting, chest pain, shortness of breath, neck pain or headache. Related Data Home Medications Medication Instructions Recorded Confirmed multivitamin 1 cap PO DAILY 06/23/20 04/11/23 fluticasone propionate 50 1 spray intranasal PRN PRN Allergy 01/06/21 04/11/23 mcg/actuation nasal Symptoms spray,suspension solifenacin 10 mg tablet 10 mg PO DAILY 03/09/21 04/11/23 atorvastatin 10 mg tablet 10 mg PO HS 03/10/21 04/11/23 metformin 500 mg tablet 500 mg PO BID 04/13/22 04/11/23 losartan 100 1 tablet PO DAILY 09/07/22 04/11/23 mg-hydrochlorothiazide 25 mg tablet Allergies Allergy/AdvReac Type Severity Reaction Status Date / Time No Known Allergies Allergy Mild Verified 04/21/23 07:26 Review of Systems Review of Systems: All systems reviewed & are unremarkable except as noted in HPI and below PMFSH Past Medical History Medical History Arthritis Arthritis, lumbar spine Bilateral hip joint arthritis BMI 31.0-31.9,adult Bronchitis Cataracts, bilateral Degenerative arthritis of knee, bilateral Diabetes Last A1c 6.4 on June 27, 2022 Essential (primary) hypertension Fracture of finger of right hand (~10/2019) 5th distal finger GI bleed Hyperlipidemia Hypertension LBBB (left bundle branch block) Low back pain Obesity Obstructive sleep apnea Rectal polyp Urinary frequency Vision disturbance (~11/28/19) Surgical History Surgical History H/O lateral meniscus repair of left knee H/O tubal ligation Hx of cataract surgery bilateral Hx of section Tear of meniscus of left knee Medial lateral meniscectomy September 18, 2022 Trigger finger, right middle finger Right third trigger finger release March 14, 2021 Family History Family History Mother Hypertension Social History Social History Smoking status: Never smoker Second hand tobacco smoke exposure: No Alcohol intake: never Living arrangements: alone Gender identity (if verbalized by the patient): Female Spiritual care concerns: No Exam Narrative: General appearance: Well-developed, well-nourished Skin: Normal color Head: Normocephalic, nontraumatic Eyes: Clear conjunctiva ENT: Oropharynx normal, ears normal, nose normal Neck: Supple, nontender Chest and respiratory: Airway patent, no respiratory distress, no accessory muscle use Heart: Regular rate/rhythm Abdomen: Soft, nontender, no organomegaly, quiet bowel sounds Vascular: Normal peripheral pulses, normal capillary refill. Musculoskeletal: Painful range of motion of the right shoulder, no bruises, no swelling, no warmth, no deformity Neurologic: Alert and oriented ?3, CLINICAL HAEMATOLOGIST is normal as tested, no gross motor deficit Course Reevaluation(s) Reevaluation #1: Feeling much better after Toradol injection and Tylenol orally. Date: 04/21/23 Time: 09:37 Vital Signs Vital signs: Vital Signs Temp
[2023-04-21] MEDS: KETOROLAC 30 MG/ML VIAL (*BKC) IM (09:49)
[2023-04-21] MEDS: ACETAMINOPHEN 325 MG TABLET 650 MG PO (09:50)
[2023-04-21 09:58] VITALS: BP 139/75; PULSE 72; RESP 16
== END 2023-04-21 09:59 | disposition home or self-care (01) ==
PROVIDERS: Emergency Provider Emergency Medicine; PCP Physician Assistant
DX: M25.511 Pain in right shoulder (principal); M19.90 Unspecified osteoarthritis, unspecified site; I10 Essential (primary) hypertension; E11.9 Type 2 diabetes mellitus without complications; Z79.84 Long term (current) use of oral hypoglycemic drugs; E78.5 Hyperlipidemia, unspecified; G47.30 Sleep apnea, unspecified
CPT/HCPCS: 71046; 73030; 96372; 99284; A9270; J1885

== ENCOUNTER 2023-06-08 08:30 | Outpatient (RCR) | payer MEDICARE, SELFPAY ==
[2023-05-04 13:35] VITALS: BP_SYST 120
--- NOTE | 2023-05-04 14:23 | PTOPEVAL1 ---
Assessment and note entered by Abida Sargent, PT Evaluation Information Assessment Status Evaluation Diagnosis R frozen shoulder Onset April 06, 2023 Subjective Information gradual increase in shoulder pain, went to ER; in February fell going up stairs, fell forward onto her extended arms, shoulders did not hurt after the fall; xrays of shoulder and had cortisone shot yesterday - no change in pain since shot; is doing her usual work and home tasks, except lifting; R is her dominant side Reported Pain Level Pain Score Self Report Additional Pain Score Comments pain range of 3-7/10 in the past week; pain R anterior shoulder, upper humerus and posterior joint; increase pain with lifting, someone hugging her on the R side; decrease pain; rest, tylenol- not help much, muscle cream, hot shower; sleeping sometimes bothers her sleeping; sometimes use ice; discussed position of shoulder, use of heat/ice PRN, heat to relax/warm up muscles and ice to decrease soreness Assessment PT Clinical Summary Lorna has the diagnosis of R frozen shoulder. She is R hand dominant, currently doing all of her normal home and work tasks, but not lifting. Sleep is sometimes disrupted due to shoulder pain. She had an injection yesterday, and does not report any difference in her pain. With the evaluation: she has decreased strength and decreased ROM of R shoulder, with pain reported with all motions, IR and flexion most pain. There is tenderness and spasms over lateral upper humerus, anterior and posterior GH joint. Skilled PT services are indicated for modalities to decrease pain and spasms, therapeutic exercises to increase the strength and ROM of her shoulder and education for posture and HEP. Plan of Care Interventions Electrical Stimulation,Hot Pack/Cold Pack,Manual Therapy,Neuro Re-education,Patient education Therapeutic Activities,Therapeutic Exercise,Ultrasound,Other Other Interventions sergioing, IASTM
--- NOTE | 2023-06-08 09:17 | PTOPDC ---
Assessment and note entered by Abida Sargent, PT Evaluation Information Assessment Status Discharge Diagnosis R frozen shoulder Onset April 06, 2023 Subjective Information Lorna reports: is doing better with her shoulder--not hurt as much and moving it more; is able to do all of her normal home and work things except lifting heavy things, has not been able to do for awhile due to arm weakness; is doing the exercises at home; sees the dr in Jul; feels like she is ready to be done with therapy. Reported Pain Level Pain Score Self Report Additional Pain Score Comments pain range in the past week of 0-4/10, hurts, sore , tight over R shoulder; is able to sleep without any problems; Assessment PT Clinical Summary Lorna has received 6 PT sessions. Compared to the initial evaluation, she has improved in all areas: ROM and strength of shoulder, activity and sleeping tolerances reported; education has been completed for HEP and posture. She continues to have pain with shoulder IR motion The goals were achieved, except shoulder flexion ROM and bilateral UE box lifting strength. Discharge PT services. Plan of Care PT Services Indicated No
== END 2023-06-08 12:36 | disposition home or self-care (01) ==
LOC: ANHPT 08:30
PROVIDERS: PCP Physician Assistant; Visit Provider Orthopaedic Surgery
DX: M75.01 Adhesive capsulitis of right shoulder (principal)
CPT/HCPCS: 97110; 97140; 97161

== ENCOUNTER → 2023-09-05 12:55 | Outpatient (CLI) | payer MEDICARE, SELFPAY ==
--- NOTE | ~2023-09-05 | DEXA_ITS ---
Bone Density Report Name: DAVID DAWN Age: 73 Sex: Female Ethnicity: Black Date of : 1950 Indication: postmenopausal; screening for osteoporosis; height loss; Referring Provider: FAVIAN, DANYELL Study: Bone densitometry was performed. Exam Date: September 05, 2023 Accession number: [id number] Bone Density: Region BMD T-score Z-score Classification AP Spine (L1-L4) 1.126 0.7 2.2 Normal Femoral Neck (Left) 0.896 0.4 1.1 Normal Total Hip (Left) 1.067 1.0 1.4 Normal Femoral Neck (Right) 0.848 0.0 0.7 Normal Total Hip (Right) 0.988 0.4 0.9 Normal Total Hip Mean 1.028 0.7 1.2 Normal World Health Organization criteria for BMD impression classify patients as: Normal (T-score at or above -1.0), Osteopenia (T-score between -1.0 and -2.5), or Osteoporosis (T-score at or below -2.5). 10-year Fracture Risk: FRAX not reported because: All T-scores for Spine Total, Hip Total, Femoral Neck at or above -1.0 Clinical Information Provided by Patient: Patient maximum height was 64.0 Menopause Age: 53 No regular weight bearing exercise Drinks caffeinated beverages Onset of menses at age 14 Number of children 3 Impression: The patient has normal bone mass. Discussion: BONE DENSITY IS ABOVE THE MINIMUM DESIRABLE LEVEL AT ALL SKELETAL SITES TESTED. This patient?s bone mineral density is above the minimum desirable level (T-score -1.0 or better) at all sites measured. The patient should follow a healthful lifestyle (good nutrition with adequate calcium and vitamin D, and appropriate weight-bearing exercise). Follow-Up: Consider repeating this study in 5 years or sooner if there is some new clinical indication. Reported by: JAZMIN on 09/05/2023 1:15:00 PM. Reviewed, dictated and finalized at location A. [facility]
== END ==
PROVIDERS: PCP Physician Assistant; Visit Provider Physician Assistant
DX: M81.0 Age-related osteoporosis without current pathological fracture (principal)
CPT/HCPCS: 77080

== ENCOUNTER → 2024-01-02 14:01 | Outpatient (CLI) | payer MEDICARE, SELFPAY ==
--- NOTE | ~2024-01-02 | MM_ITS ---
EXAMINATION: MM screening eleni BI w danica HISTORY: Screening mammogram TECHNIQUE: Craniocaudal and mediolateral oblique 3-D tomosynthesis images were obtained and synthetic 2-D images were generated. CAD analysis was submitted and interpreted. COMPARISON: 11/07/2022, 06/02/2021, 04/26/2020 bilateral screening mammogram examinations BREAST PARENCHYMAL COMPOSITION: There are scattered areas of fibroglandular density. FINDINGS: Stable benign bilateral intramammary lymph nodes. There is no evidence of suspicious mass, calcification, or architectural distortion to suggest malignancy in either breast. There has been no suspicious interval change. IMPRESSION: 1. No mammographic evidence of malignancy. 2. Recommend routine screening mammography in one year. BI-RADS Category 1: Negative Reviewed, dictated and finalized at location A. ITE DEVELOPER
== END ==
PROVIDERS: PCP Physician Assistant; Visit Provider Physician Assistant
DX: Z12.31 Encounter for screening mammogram for malignant neoplasm of breast (principal)
CPT/HCPCS: 77063; 77067

== ENCOUNTER 2025-01-05 14:40 | Outpatient (CLI) | payer MEDICARE, SELFPAY ==
--- NOTE | ~2025-01-05 | MM_ITS ---
EXAMINATION: MM screening [facility] BI w danica HISTORY: Screening TECHNIQUE: Craniocaudal and mediolateral oblique 3-D tomosynthesis images were obtained and synthetic 2-D images were generated. CAD analysis was submitted and interpreted. COMPARISON: Comparison to multiple prior studies sequentially, with oldest reviewed study dated 02/19. BREAST PARENCHYMAL COMPOSITION: Not dense: There are scattered areas of fibroglandular density. FINDINGS: There is no evidence of suspicious mass, calcification, or architectural distortion to sugg est malignancy in either breast. There has been no suspicious interval change. IMPRESSION: 1. No mammographic evidence of malignancy. 2. Recommend routine screening mammography in one year. BI-RADS Category 1: Negative Reviewed, dictated and finalized at location B. SETTER
== END 2025-01-05 14:41 | disposition home or self-care (01) ==
LOC: MICIMG 14:41
PROVIDERS: PCP Physician Assistant; Visit Provider Physician Assistant
DX: Z12.31 Encounter for screening mammogram for malignant neoplasm of breast (principal)
CPT/HCPCS: 77063; 77067